=== PATIENT | male | born 1970 | race Caucasian/White ===

== ENCOUNTER 2017-05-11 18:05 | Emergency (ER) | payer BC ==
[2017-05-11] MEDS ORDERED: Ibuprofen TAB* 600 MG PO ONE (18:35)
--- NOTE | 2017-05-11 18:39 | ED ---
Skin Complaint - HPI Summary HPI Summary: 46 male presents with complaints of a bug bite that has been progressively worsening over the past week. He sustained the bite on Sunday05/05/17 and it has since became more red and hot over his left elbow. Patient is unsure what the bug was he just felt it biting him whiel moving the lawn and having his arm in a slim bravo and he swapped it off. States he saw his PCP yesterday who started him on Bactrim. He has taken a total of 3 and they marked the area of erythema. However today the erythema is still progressing and is now outside of the demarcated area. States he also has a headache and feels weak and feverish. Denies pain at bite area. Denies red streaks and drainage. Denies difficulty breathing and chest pain. No other bites or complaints at this time. Has not taken any other medication besides the first doses of bactrim. PMHx significant for HTN and palpitations. - History of Current Complaint Chief Complaint: EDGeneral Time Seen by Provider: 05/11/17 18:25 Stated Complaint: BUG BITE Hx Obtained From: Patient Onset/Duration: Started Weeks Ago - 1, Still Present, Worse Since Skin Exposure Onset/Duration: Weeks Ago - 1 Timing: Constant Onset Severity: Mild Current Severity: Mild Pain Intensity: 3 Pain Scale Used: 0-10 Numeric Skin Location: Arm - left elbow area Character: Swelling, Redness Aggravating Symptom(s): Nothing Alleviating Symptom(s): Nothing Associated Signs & Symptoms: Fever, Rash Related History: Insect Bite/Sting - unknown type - Allergy/Home Medications Allergies/Adverse Reactions: Allergies Allergy/AdvReac Type Severity Reaction Status Date / Time Aspirin Allergy Unknown Unknown Verified 03/15/15 08:20 Reaction Details Penicillins [PCN] Allergy Unknown Unknown Verified 03/15/15 08:20 Reaction Details PMH/Surg Hx/FS Hx/Imm Hx Endocrine/Hematology History: Denies: Hx Diabetes, Hx Thyroid Disease Cardiovascular History: Reports: Hx Hypercholesterolemia, Hx Hypertension, Other Cardiovascular Problems/Disorders - IRREGULAR HEART RATE SOMETIMES Denies: Hx Angina, Hx Pacemaker/ICD Respiratory History: Denies: Hx Asthma, Other Respiratory Problems/Disorders GI History: Denies: Hx Ulcer History: Denies: Hx Renal Disease Sensory History: Denies: Hx Hearing Aid Psychiatric History: Denies: Hx Panic Disorder - Surgical History Surgery Procedure, Year, and Place: Lt elbow,. Lt. fingers- TABLE SAW CUT ACROSS- REATTACHED - Immunization History Date of Tetanus Vaccine: needs one Infectious Disease History: No Infectious Disease History: Denies: Hx Clostridium Difficile, Hx Hepatitis, Hx Human Immunodeficiency Virus (HIV), Hx of Known/Suspected MRSA, Hx Shingles, Hx Tuberculosis, Hx Known/ Suspected VRE, Hx Known/Suspected VRSA, History Other Infectious Disease, Traveled Outside the [place] in Last 30 Days - Family History Known Family History: Positive: None - Social History Alcohol Use: Occasionally Alcohol Amount: 6 pack per week Substance Use Type: Reports: None Hx Tobacco Use: No Smoking Status (MU): Never Smoked Tobacco Type: Smokeless Tobacco Amount Used/How Often: 1 can every 4 days Length of Time of Smoking/Using Tobacco: since 16 years old Have You Smoked in the Last Year: No Review of Systems Positive: Fever, Chills, Fatigue Eyes: Negative Cardiovascular: Negative Respiratory: Negative Gastrointestinal: Negative Musculoskeletal: Negative Positive: Rash - insect bite All Other Systems Reviewed And Are Negative: Yes Physical Exam Triage Information Reviewed: Yes Vital Signs On Initial Exam: Initial Vitals Temp Pulse Resp BP Pulse Ox 98.2 F 85 18 135/100 100 05/11/17 18:07 05/11/17 18:07 05/11/17 18:07 05/11/17 18:07 05/11/17 18:07 Vital Signs Reviewed: Yes Appearance: Positive: Well-Appearing, No Pain Distress, Well-Nourished Skin: Positive: Warm, Skin Color Reflects Adequate Perfusion, Dry, Erythema @ - left elbow extending proximal and distal approximately 15 cm in length proximally-->distally. No abscess, sign of bite, drainage or red streaks. demarcated area line drawn however redness is outside of area. warm to touch non tender, Other - rest of skin exam normal, no rash or other bites.. Negative : Cold, Numb, Tender, Soft, Pale, Weeping Skin/Lesions Head/Face: Positive: Normal Head/Face Inspection Eyes: Positive: Normal, Conjunctiva Clear ENT: Positive: Normal ENT inspection, Hearing grossly normal Neck: Positive: Supple, Nontender, No Lymphadenopathy Respiratory/Lung Sounds: Positive: Clear to Auscultation, Breath Sounds Present. Negative: Decreased Breath Sounds, Rales, Rhonchi, Stridor, Wheezes Cardiovascular: Positive: Normal, RRR, Pulses are Symmetrical in both Upper and Lower Extremities. Negative: Murmur, Rub Bowel Sounds: Positive: Present Musculoskeletal: Positive: Normal, Strength/ROM Intact, Edema Left - very minimal over area of cellulitis (left elbow), diffuse, not significant when compared to right. Negative: Limited @, Interruption @, Pain @ Neurological: Positive: Normal, Sensory/Motor Intact - sensation intact, Alert, Oriented to Person Place, Time, CN Intact II-III, Reflexes Intact, NV Bundle Intact Distally Psychiatric: Positive: Affect/Mood Appropriate AVPU Assessment: Alert Diagnostics - Vital Signs Vital Signs Temp Pulse Resp BP Pulse Ox 05/11/17 18:26 98.2 F 85 18 135/100 100 05/11/17 18:07 98.2 F 85 18 135/100 100 - Laboratory Result Diagrams: 05/11/17 18:45 05/11/17 18:45 Lab Statement: Any lab studies that have been ordered have been reviewed, and results considered in the medical decision making process. Course/Dx - Course Course Of Treatment: given ibuprofen for headache. CBC and CMP obtained to rule out sepsis. unremarkable. due to normal lab values and clinical presentation will be sent home with additional antibiotic at this time. educated on worsening signs and symptoms to watch out for. return if does not improve. follow up with pcp. continue marking area of erythema. - Differential Diagnoses - Skin Complaint Differential Diagnoses: Cellulitis, Contact Dermatitis, Local Allergic Reaction , Tinea, Urticaria, Viral Exanthem - Diagnoses Provider Diagnoses: Cellulitis, Bug bite of face with infection Discharge - Discharge Plan Condition: Stable Disposition: HOME Patient Education Materials: Cellulitis (ED), Insect Bite or Sting (ED) Referrals: Larisa Collado [Primary Care Provider] - Additional Instructions: Continue taking Bactrim given to you by your primary care doctor. Take prescribed antibiotic given to you in ED as directed. Recommend eating yemeni yogurt or taking a probiotic pill once a day hour or two after taking antibiotic pill to replenish normal mary anne. Ibuprofen for pain and inflammation only if needed. If symptoms worsen or are still not improving within 2-3 days please seek medical attention. If you develop fever/chills, feeling ill, or red streaking return to ER immediately.
[2017-05-11 18:53] LABS: Hematocrit 37 % (42-52); Hemoglobin 12.1 g/dl (14.0-18.0); Mean Corpuscular HGB Conc 33 g/dl (31-36); Mean Corpuscular Hemoglobin 28 pg (27-31); Mean Corpuscular Volume 87 fL (80-94); Mean Platelet Volume 8 um3 (7.4-10.4); Red Blood Count 4.26 10^6/ul (4.0-5.4); Red Cell Distribution Width 13 % (10.5-15); White Blood Count 5.8 10^3/ul (3.5-10.8)
[2017-05-11 19:08] LABS: Albumin 4.2 g/dL (3.2-5.2); BUN/Creatinine Ratio 11.8 (8-20); Calcium 9.5 mg/dL (8.6-10.3); EGFR African American 84.6 (>60); EGFR Non-African American 65.8 (>60); Globulin 3.3 g/dL (2-4); Potassium 3.6 mmol/L (3.5-5.0); Total Bilirubin 0.3 mg/dL (0.2-1.0); Total Protein 7.5 g/dL (6.4-8.9)
[2017-05-11 19:39] VITALS: BP 127/88
[2017-05-11] MEDS ORDERED: Cephalexin CAP* 250 MG PO ONE (19:44)
== END 2017-05-11 19:59 | disposition home or self-care (01) ==
LOC: ED 18:05
DX: S00.86XA Insect bite (nonvenomous) of other part of head, initial encounter (principal); L03.211 Cellulitis of face; W57.XXXA Bitten or stung by nonvenomous insect and other nonvenomous arthropods, initial encounter; Y92.9 Unspecified place or not applicable; E78.00 Pure hypercholesterolemia, unspecified; I10 Essential (primary) hypertension; F17.229 Nicotine dependence, chewing tobacco, with unspecified nicotine-induced disorders
CPT/HCPCS: 36415; 80053; 83605; 85025; 99282; A9270-GY

== ENCOUNTER 2017-08-23 07:49 | Emergency (ER) | payer BC ==
[2017-08-23 09:13] LABS: Hematocrit 36 % (42-52); Hemoglobin 12.5 g/dl (14.0-18.0); Mean Corpuscular HGB Conc 34 g/dl (31-36); Mean Corpuscular Hemoglobin 30 pg (27-31); Mean Corpuscular Volume 87 fL (80-94); Mean Platelet Volume 8 um3 (7.4-10.4); Red Cell Distribution Width 14 % (10.5-15); White Blood Count 9.9 10^3/ul (3.5-10.8)
--- NOTE | 2017-08-23 09:26 | RAD ---
INDICATION: Chest pain COMPARISON: February 08, 2015 TECHNIQUE: PA and lateral dual-energy views were obtained. FINDINGS: Bones/Soft Tissues: There are no acute bony findings. Cardiomediastinal: The cardiomediastinal silhouette is normal. Lungs: There are no infiltrates. There is no pneumothorax. Pleura: There are no pleural effusions. Other: None IMPRESSION: NORMAL CHEST
[2017-08-23 09:36] LABS: Albumin 4.2 g/dL (3.2-5.2); BUN/Creatinine Ratio 14.7 (8-20); Calcium 9.2 mg/dL (8.6-10.3); EGFR African American 100.7 (>60); EGFR Non-African American 78.3 (>60); Globulin 2.8 g/dL (2-4); Total Bilirubin 0.3 mg/dL (0.2-1.0)
--- NOTE | 2017-08-23 11:06 | ED ---
Bernard Manuel Benjamin, scribed for Mike Sánchez MD on 08/23/17 at 0840 . HPI Chest Pain - HPI Summary HPI Summary: 47yo male c/o sudden onset of chest pressure yesterday night. Pt also woke up this morning around 5am with the same CP. Pt states that his CP radiates to neck and shoulder blades. Pain is worsened with deep breaths but movement does not affect his pain. Denies any swelling or pain in legs. Pt has recently finished his abx tx course for Lyme disease. Pt has hx of irregular heart beat, which pt has followed up with a cardiac work up including a stress test. No cardiac catheter was done. 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 Negative: Calf Pain/ Swelling - Allergy/Home Medications Allergies/Adverse Reactions: Allergies Allergy/AdvReac Type Severity Reaction Status Date / Time Aspirin Allergy Unknown Unknown Verified 03/15/15 08:20 Reaction Details Penicillins [PCN] Allergy Unknown Unknown Verified 03/15/15 08:20 Reaction Details PMH/Surg Hx/FS Hx/Imm Hx Endocrine/Hematology History: Denies: Hx Diabetes, Hx Thyroid Disease Cardiovascular History: Reports: Hx Hypercholesterolemia, Hx Hypertension, Other Cardiovascular Problems/Disorders - IRREGULAR HEART RATE SOMETIMES Denies: Hx Angina, Hx Pacemaker/ICD Respiratory History: Denies: Hx Asthma, Other Respiratory Problems/Disorders GI History: Denies: Hx Ulcer History: Denies: Hx Renal Disease Sensory History: Denies: Hx Hearing Aid Psychiatric History: Denies: Hx Panic Disorder - Surgical History Surgery Procedure, Year, and Place: Lt elbow,. Lt. fingers- TABLE SAW CUT ACROSS- REATTACHED - Immunization History Date of Tetanus Vaccine: needs one Infectious Disease History: No Infectious Disease History: Denies: Hx Clostridium Difficile, Hx Hepatitis, Hx Human Immunodeficiency Virus (HIV), Hx of Known/Suspected MRSA, Hx Shingles, Hx Tuberculosis, Hx Known/ Suspected VRE, Hx Known/Suspected VRSA, History Other Infectious Disease, Traveled Outside the [place] in Last 30 Days - Family History Known Family History: Positive: Hypertension Negative: Cardiac Disease, Diabetes - Social History Occupation: Employed Full-time Lives: With Family Alcohol Use: Occasionally Alcohol Amount: 6 pack per week Substance Use Type: Reports: None Hx Tobacco Use: No Smoking Status (MU): Never Smoked Tobacco Type: Smokeless Tobacco Amount Used/How Often: 1 can every 4 days Length of Time of Smoking/Using Tobacco: since 16 years old Have You Smoked in the Last Year: No Review of Systems Constitutional: Negative Eyes: Negative ENT: Negative Positive: Chest Pain Respiratory: Negative Gastrointestinal: Negative Genitourinary: Negative Musculoskeletal: Negative Skin: Negative Neurological: Negative Psychological: Normal All Other Systems Reviewed And Are Negative: Yes Physical Exam Triage Information Reviewed: Yes Vital Signs On Initial Exam: Initial Vitals Temp Pulse Resp BP Pulse Ox 97.1 F 85 20 164/100 100 08/23/17 07:53 08/23/17 07:53 08/23/17 07:53 08/23/17 07:53 08/23/17 07:53 Vital Signs Reviewed: Yes Appearance: Positive: Well-Appearing, No Pain Distress, Well-Nourished Skin: Positive: Warm, Skin Color Reflects Adequate Perfusion, Dry Head/Face: Positive: Normal Head/Face Inspection Eyes: Positive: Normal, EOMI, CALLI ENT: Positive: Normal ENT inspection, Hearing grossly normal Neck: Positive: Supple, Nontender Respiratory/Lung Sounds: Positive: Clear to Auscultation, Breath Sounds Present Cardiovascular: Positive: RRR, Pulses are Symmetrical in both Upper and Lower Extremities. Negative: Murmur Abdomen Description: Positive: Nontender, Soft Bowel Sounds: Positive: Present Musculoskeletal: Positive: Normal, Strength/ROM Intact Neurological: Positive: Sensory/Motor Intact, Alert, Oriented to Person Place, Time Psychiatric: Positive: Affect/Mood Appropriate Diagnostics - Vital Signs Vital Signs Temp Pulse Resp BP Pulse Ox 08/23/17 07:53 97.1 F 85 20 164/100 100 - Laboratory Lab Results: Lab Results 08/23/17 08/23/17 08/23/17 Range/Units 09:00 09:00 09:00 WBC 9.9 (3.5-10.8) 10^3/ul RBC 4.20 (4.0-5.4) 10^6/ul Hgb 12.5 L (14.0-18.0) g/dl Hct 36 L (42-52) % MCV 87 (80-94) fL MCH 30 (27-31) pg MCHC 34 (31-36) g/dl RDW 14 (10.5-15) % Plt Count 264 (150-450) 10^3/ul MPV 8 (7.4-10.4) um3 Neut % (Auto) 75.0 (38-83) % Lymph % (Auto) 13.7 L (25-47) % Griggs % (Auto) 8.0 (1-9) % Eos % (Auto) 2.6 (0-6) % Baso % (Auto) 0.7 (0-2) % Absolute Neuts (auto) 7.4 (1.5-7.7) 10^3/ul Absolute Lymphs (auto) 1.4 (1.0-4.8) 10^3/ul Absolute Monos (auto) 0.8 (0-0.8) 10^3/ul Absolute Eos (auto) 0.3 (0-0.6) 10^3/ul Absolute Basos (auto) 0.1 (0-0.2) 10^3/ul Absolute Nucleated RBC 0 10^3/ul Nucleated RBC % 0 D-Dimer, Quantitative < 200 (Less Than 230) ng/mL Sodium 138 (133-145) mmol/L Potassium 4.0 (3.5-5.0) mmol/L Chloride 106 (101-111) mmol/L Carbon Dioxide 25 (22-32) mmol/L Anion Gap 7 (2-11) mmol/L BUN 15 (6-24) mg/dL Creatinine 1.02 (0.67-1.17) mg/dL Est GFR ( Amer) 100.7 (>60) Est GFR (Non-Af Amer) 78.3 (>60) BUN/Creatinine Ratio 14.7 (8-20) Glucose 105 H (70-100) mg/dL Lactic Acid (0.5-2.0) mmol/L Calcium 9.2 (8.6-10.3) mg/dL Total Bilirubin 0.30 (0.2-1.0) mg/dL AST 18 (13-39) U/L ALT 21 (7-52) U/L Alkaline Phosphatase 39 (34-104) U/L Troponin I 0.00 (<0.04) ng/mL Total Protein 7.0 (6.4-8.9) g/dL Albumin 4.2 (3.2-5.2) g/dL Globulin 2.8 (2-4) g/dL Albumin/Globulin Ratio 1.5 (1-3) 08/23/17 Range/Units 09:00 WBC (3.5-10.8) 10^3/ul RBC (4.0-5.4) 10^6/ul Hgb (14.0-18.0) g/dl Hct (42-52) % MCV (80-94) fL MCH (27-31) pg MCHC (31-36) g/dl RDW (10.5-15) % Plt Count (150-450) 10^3/ul MPV (7.4-10.4) um3 Neut % (Auto) (38-83) % Lymph % (Auto) (25-47) % Griggs % (Auto) (1-9) % Eos % (Auto) (0-6) % Baso % (Auto) (0-2) % Absolute Neuts (auto) (1.5-7.7) 10^3/ul Absolute Lymphs (auto) (1.0-4.8) 10^3/ul Absolute Monos (auto) (0-0.8) 10^3/ul Absolute Eos (auto) (0-0.6) 10^3/ul Absolute Basos (auto) (0-0.2) 10^3/ul Absolute Nucleated RBC 10^3/ul Nucleated RBC % D-Dimer, Quantitative (Less Than 230) ng/mL Sodium (133-145) mmol/L Potassium (3.5-5.0) mmol/L Chloride (101-111) mmol/L Carbon Dioxide (22-32) mmol/L Anion Gap (2-11) mmol/L BUN (6-24) mg/dL Creatinine (0.67-1.17) mg/dL Est GFR ( Amer) (>60) Est GFR (Non-Af Amer) (>60) BUN/Creatinine Ratio (8-20) Glucose (70-100) mg/dL Lactic Acid 1.8 (0.5-2.0) mmol/L Calcium (8.6-10.3) mg/dL Total Bilirubin (0.2-1.0) mg/dL AST (13-39) U/L ALT (7-52) U/L Alkaline Phosphatase (34-104) U/L Troponin I (<0.04) ng/mL Total Protein (6.4-8.9) g/dL Albumin (3.2-5.2) g/dL Globulin (2-4) g/dL Albumin/Globulin Ratio (1-3) Result Diagrams: 08/23/17 09:00 08/23/17 09:00 Lab Statement: Any lab studies that have been ordered have been reviewed, and results considered in the medical decision making process. - EKG 0905. Cardiac Rate: NL - 70bpm EKG Rhythm: Sinus Rhythm EKG Interpretation: Early repolarization. Re-Evaluation - Re-Evaluation Second Eval Re-Evaluation Time: 10:26 Comment: Reviewed pts lab and imaging results with the pt. Chest Pain Course/Dx - Course Course Of Treatment: Mr. Ansari presented with an atypical CP. His EDACS score is 6 and his W/U is negative. - Diagnoses Provider Diagnoses: Chest pain Discharge - Discharge Plan Condition: Stable Disposition: HOME Patient Education Materials: Chest Pain (ED) Referrals: Larisa Collado [Primary Care Provider] - 2 Days The documentation as recorded by the Bernard hall Benjamin accurately reflects the service I personally performed and the decisions made by , Mike Sánchez MD.
[2017-08-23 11:07] VITALS: BP 116/75
== END 2017-08-23 11:13 | disposition home or self-care (01) ==
LOC: ED 07:49
DX: R07.9 Chest pain, unspecified (principal)
CPT/HCPCS: 36415; 71020; 80053; 83605; 84484; 85025; 85379; 93005; 99282

== ENCOUNTER 2017-12-18 10:45 | Emergency (ER) | payer BC ==
[2017-12-18 11:14] VITALS: BP 129/90
--- NOTE | 2017-12-18 11:51 | UC ---
Throat Pain/Nasal Luis HPI - HPI Summary HPI Summary: Patient presents with a past medical history of palpitations. He presents today with complaints of nasal discharge by day, and complete nasal plugging at night. He also complains of sore throat. He states he has been taking luzmaria selzer with no relief. He denies any chest pain, dyspnea, syncope, fever, chills , chest of abdominal pain, nausea, vomiting, or diarrhea. - History of Current Complaint Chief Complaint: UCGeneralIllness Stated Complaint: THROAT PAIN Time Seen by Provider: 12/18/17 11:34 Hx Obtained From: Patient Onset/Duration: Gradual Onset, Lasting Days Severity: Moderate Pain Intensity: 4 Cough: Nonproductive Associated Signs & Symptoms: Positive: Sinus Discomfort, Nasal Discharge - Epiglottits Risk Factors Epiglottis Risk Factors: Negative - Allergies/Home Medications Allergies/Adverse Reactions: Allergies Allergy/AdvReac Type Severity Reaction Status Date / Time MS Aspirin [Aspirin] Allergy Unknown Unknown Verified 12/18/17 11:14 Reaction Details MS Penicillins [PCN] Allergy Unknown Unknown Verified 12/18/17 11:14 Reaction Details PMH/Surg Hx/FS Hx/Imm Hx Previously Healthy: Yes - Surgical History Surgical History: Yes Surgery Procedure, Year, and Place: Lt elbow,. Lt. fingers- TABLE SAW CUT ACROSS- REATTACHED - Family History Known Family History: Positive: None, Hypertension Negative: Cardiac Disease, Diabetes - Social History Occupation: Employed Full-time Lives: Alone Alcohol Use: Weekly Alcohol Amount: 6 pack per week Substance Use Type: None Smoking Status (MU): Never Smoked Tobacco Type: Smokeless Tobacco Amount Used/How Often: 1 can every 4 days Length of Time of Smoking/Using Tobacco: since 16 years old Have You Smoked in the Last Year: No Review of Systems Constitutional: Fatigue Skin: Negative Eyes: Negative ENT: Sore Throat, Nasal Discharge, Sinus Congestion, Sinus Pain/Tenderness Respiratory: Negative Cardiovascular: Negative Gastrointestinal: Negative Genitourinary: Negative Motor: Negative Neurovascular: Negative Musculoskeletal: Negative Neurological: Negative Psychological: Negative Is Patient Immunocompromised?: No All Other Systems Reviewed And Are Negative: Yes Physical Exam Triage Information Reviewed: Yes Appearance: Well-Appearing Vital Signs: Initial Vital Signs Temp 98.6 F 12/18/17 11:10 Pulse 84 12/18/17 11:10 Resp 18 12/18/17 11:10 BP 129/90 12/18/17 11:10 Pulse Ox 100 12/18/17 11:10 Vital Signs Reviewed: Yes Eye Exam: Normal ENT: Positive: Pharyngeal erythema, Nasal congestion, Nasal drainage, Sinus tenderness Neck exam: Normal Neck: Positive: 1 Respiratory Exam: Normal Cardiovascular Exam: Normal Abdominal Exam: Normal Musculoskeletal Exam: Normal Neurological Exam: Normal Psychological Exam: Normal Skin Exam: Normal Throat Pain/Nasal Course/Dx - Course Course Of Treatment: Patient presents with a past medical history of palpitations. He presents today with complaints of sinus discharge, and nasal plugging, with normal vital signs and a non-toxic appearance. He is exposed to sheet rock dust at work and this has aggrevated his sinuses. He presents clincially with sinusiits and he has tried OTC cough and cold remedies. Therefore he was prescribed zpk, prednisone, and told to stay home from work today. He did verbalize understanding of and in agreement with the discharge plan. - Differential Dx/Diagnosis Differential Diagnosis/HQI/PQRI: Sinusitis Provider Diagnoses: sinusitis Discharge - Discharge Plan Condition: Stable Disposition: HOME Prescriptions: Azithromycin TAB* [Zithromax TAB (Z-CRISTELA) 250 mg #6 tabs] 2 tab PO .TODAY, THEN 1 DAILY #1 cristela predniSONE TAB* [Deltasone TAB*] 20 mg PO BID #10 tab Patient Education Materials: Sinusitis (ED) Referrals: Larisa Collado [Primary Care Provider] - Additional Instructions: If your symptoms do not improve follow up with your PCP within 48 hours.
== END 2017-12-18 11:50 | disposition home or self-care (01) ==
LOC: UCEAST 10:45
DX: J32.9 Chronic sinusitis, unspecified (principal); Z88.6 Allergy status to analgesic agent; Z88.0 Allergy status to penicillin; F17.220 Nicotine dependence, chewing tobacco, uncomplicated
CPT/HCPCS: 99212; G0463

== ENCOUNTER 2018-10-07 13:03 | Emergency (ER) | payer BC ==
[2018-10-07 13:11] VITALS: BP 140/90
--- NOTE | 2018-10-07 13:30 | UC ---
UC General HPI - HPI Summary HPI Summary: Here with - Concern for watery diarrhea that began 10/03 - nonbloody. Stools darker since pept Watery diarrhea has improved is just loose. Also c/o subjective fever off and on as well. Now c/o chest tightness, lightheadedness and feeling off. Currently feels off right now. +Nausea. No vomiting. No diaphoresis. +Sore throat, +congestion. No SOB. +H/A. No recent Abx use. Started with sharp abdominal pain today. Last stress test was a few years ago. Concerned because on 10/02 - he was exposed to a significant amount of mice infestation. He was wearing a mask, but was concerned about exposure. No sick contacts. Denies any urinary symptoms. PMHx: HTN, HLD FMHx: No early CAD - History of Current Complaint Chief Complaint: UCGeneralIllness Stated Complaint: WEAKNESS, DIZZINESS Time Seen by Provider: 10/07/18 13:17 Pain Intensity: 6 - Allergy/Home Medications Allergies/Adverse Reactions: Allergies Allergy/AdvReac Type Severity Reaction Status Date / Time aspirin Allergy Intermediate Unknown Verified 10/07/18 13:12 Reaction Details Penicillins Allergy Intermediate Unknown Verified 10/07/18 13:12 Reaction Details Home Medications: Home Medications Pravastatin (NF) [Pravachol (NF)] 20 mg PO 1700 10/07/18 [History Confirmed ] PMH/Surg Hx/FS Hx/Imm Hx Previously Healthy: No Endocrine History: Dyslipidemia Cardiovascular History: Hypertension - Surgical History Surgical History: Yes Surgery Procedure, Year, and Place: Lt elbow,. Lt. fingers- TABLE SAW CUT ACROSS- REATTACHED - Family History Known Family History: Positive: None, Hypertension Negative: Cardiac Disease, Diabetes - Social History Alcohol Use: Weekly Alcohol Amount: 6 pack per week Substance Use Type: None Smoking Status (MU): Never Smoked Tobacco Type: Smokeless Tobacco Amount Used/How Often: 1 can every 4 days Length of Time of Smoking/Using Tobacco: since 16 years old Have You Smoked in the Last Year: No Review of Systems All Other Systems Reviewed And Are Negative: Yes Is Patient Immunocompromised?: No - Comments Additional Review of Systems Comments: As mentioned in HPI Physical Exam Triage Information Reviewed: Yes Completion Of Physical Exam Limited Due To: Other - Pale Appearance: Well-Appearing Vital Signs: Initial Vital Signs Temp 98.6 F 10/07/18 13:07 Pulse 79 10/07/18 13:07 Resp 18 10/07/18 13:07 BP 140/90 10/07/18 13:07 Pulse Ox 100 10/07/18 13:07 Eyes: Positive: Conjunctiva Clear ENT: Positive: Tonsillar swelling Dental Exam: Normal Neck: Positive: Supple, Nontender Respiratory: Positive: Chest non-tender, Lungs clear, Normal breath sounds Cardiovascular: Positive: RRR, Other: - soft systolic murmur Abdomen Description: Positive: Nontender, No Organomegaly, Soft Skin Exam: Normal Diagnostics - EKG Cardiac Rate: NL EKG Comparison: No Significant Change Course/Dx - Course Course Of Treatment: This is a 48 yr old with diarrhea and feeling unwell for the past week. Orthostatics unremarkable. Ddx: Gastroenteritis with mild dehydration. Viral illness. Electrolyte imbalance. Plan. Discussed that he should go directly to the ER for further work up including labs and possible IVFs. SPoke with Dr. Keane - Differential Dx - Multi-Symptom Provider Diagnoses: Diarrhea Discharge - Sign-Out/Discharge Documenting (check all that apply): Patient Departure All imaging exams completed and their final reports reviewed: No Studies - Discharge Plan Condition: Stable Disposition: HOME-RECOMMEND TO ED Referrals: Larisa Collado [Primary Care Provider] - Additional Instructions: REcommend going directly to the ER for further evaluation - Billing Disposition and Condition Condition: STABLE Disposition: Home-Recommend to ED
== END 2018-10-07 13:45 | disposition home health service (06) ==
LOC: UCEAST 13:03
DX: R19.7 Diarrhea, unspecified (principal); Z88.0 Allergy status to penicillin; Z88.6 Allergy status to analgesic agent; I10 Essential (primary) hypertension; E78.5 Hyperlipidemia, unspecified
CPT/HCPCS: 81003; 93005; 99212; G0463

== ENCOUNTER 2018-10-07 14:05 | Emergency (ER) | payer BC ==
[2018-10-07] MEDS ORDERED: NS 0.9% 1000 ML* 1,000 ML IV ONE (15:10)
--- NOTE | 2018-10-07 15:27 | ED ---
Influenza-Like Illness - HPI Summary HPI Summary: Patient is an otherwise healthy 48-year-old male presenting to the ED with a 6 day history of flulike symptoms. Endorses intermittent fevers, chills, intermittent sweats, nausea and weakness. Denies influenza immunization this year. Endorses one episode of diarrhea, however this has improved. He denies any known sick contacts. Denies history of same symptoms. He continues to eat and drink well. Denies any nausea currently but states this has been intermittent over the past week. He has not taken his temperature home, however has felt diaphoretic. Nothing makes the symptoms better or worse. He has been taking Tylenol at home without relief. He has not taken any other medications. He denies any allergies or significant PMH. - History of Current Complaint Chief Complaint: EDWeakness Time Seen by Provider: 10/07/18 14:36 Hx Obtained From: Patient, Family/[employer]ud [employer] Onset/Duration: Gradual Onset Severity: Moderate Associated Signs & Symptoms: Fever, F/C, Sore Throat, Nasal Congestion - Risk Factors Influenza Risk Factors: Negative - Allergy/Home Medications Allergies/Adverse Reactions: Allergies Allergy/AdvReac Type Severity Reaction Status Date / Time aspirin Allergy Intermediate Unknown Verified 10/07/18 14:13 Reaction Details Penicillins Allergy Intermediate Unknown Verified 10/07/18 14:13 Reaction Details PMH/Surg Hx/FS Hx/Imm Hx Previously Healthy: Yes Endocrine/Hematology History: Denies: Hx Diabetes, Hx Thyroid Disease Cardiovascular History: Reports: Hx Hypercholesterolemia, Hx Hypertension, Other Cardiovascular Problems/Disorders - IRREGULAR HEART RATE SOMETIMES Denies: Hx Angina, Hx Pacemaker/ICD Respiratory History: Denies: Hx Asthma, Other Respiratory Problems/Disorders GI History: Denies: Hx Ulcer History: Denies: Hx Renal Disease Sensory History: Denies: Hx Hearing Aid Psychiatric History: Denies: Hx Panic Disorder - Surgical History Surgery Procedure, Year, and Place: Lt elbow,. Lt. fingers- TABLE SAW CUT ACROSS- REATTACHED - Immunization History Date of Tetanus Vaccine: needs one Infectious Disease History: No Infectious Disease History: Denies: Hx Clostridium Difficile, Hx Hepatitis, Hx Human Immunodeficiency Virus (HIV), Hx of Known/Suspected MRSA, Hx Shingles, Hx Tuberculosis, Hx Known/ Suspected VRE, Hx Known/Suspected VRSA, History Other Infectious Disease, Traveled Outside the [place] in Last 30 Days - Family History Known Family History: Positive: None, Hypertension Negative: Cardiac Disease, Diabetes - Social History Occupation: Employed Full-time Lives: With Family Alcohol Use: Weekly Alcohol Amount: 6 pack per week Hx Substance Use: No Substance Use Type: Reports: Marijuana Substance Use Comment - Amount & Last Used: smoked marijuana 2 days ago. Hx Tobacco Use: No Smoking Status (MU): Never Smoked Tobacco Type: Smokeless Tobacco Amount Used/How Often: 1 can every 4 days Length of Time of Smoking/Using Tobacco: since 16 years old Have You Smoked in the Last Year: No Review of Systems Positive: Fever, Chills, Fatigue, Skin Diaphoresis Negative: Photophobia, Blurred Vision, Diplopia Negative: Sore Throat, Ear Ache, Nasal Discharge Negative: Palpitations, Chest Pain Negative: Shortness Of Breath, Cough Positive: Diarrhea, Nausea Genitourinary: Negative Positive: no symptoms reported, see HPI Negative: Arthralgia, Myalgia Skin: Negative Positive: Weakness All Other Systems Reviewed And Are Negative: Yes Physical Exam Triage Information Reviewed: Yes Vital Signs On Initial Exam: Initial Vitals Temp Pulse Resp BP Pulse Ox 98.2 F 74 16 155/93 100 10/07/18 14:08 10/07/18 14:08 10/07/18 14:08 10/07/18 14:08 10/07/18 14:08 Vital Signs Reviewed: Yes Appearance: Positive: Well-Appearing, Well-Nourished Skin: Positive: Skin Color Reflects Adequate Perfusion Head/Face: Positive: Normal Head/Face Inspection Eyes: Positive: EOMI, CALLI, Conjunctiva Clear Neck: Positive: Supple, No Lymphadenopathy Respiratory/Lung Sounds: Positive: Breath Sounds Present Cardiovascular: Positive: RRR Musculoskeletal: Positive: Strength/ROM Intact Neurological: Positive: Speech Normal Psychiatric: Positive: Affect/Mood Appropriate AVPU Assessment: Alert Diagnostics - Vital Signs Vital Signs Temp Pulse Resp BP Pulse Ox 10/07/18 15:00 70 11 98 10/07/18 14:57 74 11 138/96 98 10/07/18 14:37 76 96 10/07/18 14:08 98.2 F 74 16 155/93 100 - Laboratory Result Diagrams: 10/07/18 15:30 10/07/18 15:30 Lab Statement: Any lab studies that have been ordered have been reviewed, and results considered in the medical decision making process. Flu Symptom Course/Dx - Course Course Of Treatment: During the course of treatment, labs obtained to evaluate this patient's flulike symptoms. Influenza negative. Chest x-ray negative. UA negative. Patient appears well, however somewhat fatigued. On physical examination, mucous membranes moist, lungs CTA, RRR, abdomen nontender. Patient is encouraged plenty of fluids and rest over the next few days. - Diagnoses Differential Diagnosis/HQI/PQRI: Positive: Influenza, Pneumonia, Upper Respiratory Infection Provider Diagnoses: Viral syndrome Discharge - Sign-Out/Discharge Documenting (check all that apply): Patient Departure - Discharge Plan Condition: Stable Disposition: HOME Referrals: Larisa Collado [Primary Care Provider] - Additional Instructions: Drink plenty of fluids - Billing Disposition and Condition Condition: STABLE Disposition: Home
[2018-10-07 15:39] LABS: ABS Basophils 0.1 10^3/ul (0-0.2); ABS Eosinophils 0.2 10^3/ul (0-0.6); ABS Lymphocytes 1.8 10^3/ul (1.0-4.8); ABS Monocytes 0.5 10^3/ul (0-0.8); ABS Neutrophils 4.1 10^3/ul (1.5-7.7); ABS Nucleated RBC 0 10^3/ul; Eosinophil % 2.7 % (0-6); Hematocrit 36 % (42-52); Hemoglobin 12.3 g/dl (14.0-18.0); Mean Corpuscular HGB Conc 34 g/dl (31-36); Mean Corpuscular Hemoglobin 30 pg (27-31); Mean Corpuscular Volume 87 fL (80-94); Mean Platelet Volume 8.1 fL (7.4-10.4); Nucleated Red Blood Cells % 0; Platelet Count 257 10^3/ul (150-450); Red Blood Count 4.15 10^6/ul (4.00-5.40); Red Cell Distribution Width 13 % (10.5-15); White Blood Count 6.6 10^3/ul (3.5-10.8)
[2018-10-07 15:53] LABS: Urine Appearance Clear; Urine Blood Negative (Negative); Urine Color Yellow; Urine Ketones Negative (Negative); Urine Protein Negative (Negative); Urine Specific Gravity 1.015 (1.010-1.030); Urine Urobilinogen Negative (Negative)
[2018-10-07 15:56] LABS: EGFR Non-African American 81.6 (>60)
[2018-10-07 17:26] VITALS: BP 129/85
== END 2018-10-07 17:25 | disposition home or self-care (01) ==
LOC: ED 14:05
DX: B34.9 Viral infection, unspecified (principal); Z88.0 Allergy status to penicillin
CPT/HCPCS: 36415; 71046; 80053; 81003; 83605; 85025; 86140; 96360; 96361; 99283

== ENCOUNTER 2018-12-10 12:32 | Emergency (ER) | payer BC ==
[2018-12-10 12:40] VITALS: BP 153/97
--- NOTE | 2018-12-10 13:00 | UC ---
Throat Pain/Nasal Luis HPI - HPI Summary HPI Summary: Pt Presents to with sinus pressure x 12 days. Pt states his ears intermittently pop + PND. Pt reports PND. Pt has been using nasonex twice daily. States helps but now wakes with thick green dry secretions and blood. No fever, chills. No cough. + facial pressure. Pt has intermittently taken Zyrtec with mild improvement. Shower steam helps. Pt works construction, extensive saw dust Pt's medications reviewed this visit No tobacco use - History of Current Complaint Chief Complaint: UCRespiratory Stated Complaint: SINUS ISSUE Time Seen by Provider: 12/10/18 12:36 Hx Obtained From: Patient Severity: Moderate Pain Intensity: 5 Pain Scale Used: 0-10 Numeric - Allergies/Home Medications Allergies/Adverse Reactions: Allergies Allergy/AdvReac Type Severity Reaction Status Date / Time aspirin Allergy Intermediate Unknown Verified 12/10/18 12:41 Reaction Details Penicillins Allergy Intermediate Unknown Verified 12/10/18 12:41 Reaction Details Home Medications: Home Medications Metoprolol Tartrate TAB* [Lopressor TAB*] 25 mg PO DAILY 12/10/18 [History Confirmed 12/10/18] PMH/Surg Hx/FS Hx/Imm Hx Previously Healthy: Yes - Surgical History Surgical History: Yes Surgery Procedure, Year, and Place: Lt elbow,. Lt. fingers- TABLE SAW CUT ACROSS- REATTACHED - Family History Known Family History: Positive: None, Hypertension, Non-Contributory Negative: Cardiac Disease, Diabetes - Social History Alcohol Use: Weekly Alcohol Amount: 6 pack per week Substance Use Type: None Substance Use Comment - Amount & Last Used: smoked marijuana 2 days ago. Smoking Status (MU): Never Smoked Tobacco Type: Smokeless Tobacco Amount Used/How Often: 1 can every 4 days Length of Time of Smoking/Using Tobacco: since 16 years old Have You Smoked in the Last Year: No Review of Systems All Other Systems Reviewed And Are Negative: Yes ENT: Positive: Nasal Discharge, Sinus Congestion, Sinus Pain/Tenderness Respiratory: Positive: Cough Physical Exam - Summary Physical Exam Summary: Vital Signs Reviewed: Yes A+Ox3, no distress Eyes: Conjunctiva Clear, CALLI. EOM intact and full ENT: Hearing grossly normal, mild fluid b/l TM L>R, no erythema, no retraction, turbinates inflammed and boggy, +pnd, mmoist, uvula midline, no exudate, no erythema Neck: Positive: Supple Respiratory: Positive: No respiratory distress, No accessory muscle use + CTA throughout no w/r Cardiovascular: RRR nl s1, s2 no m/r CBT <2 sec abd soft + BS nt/nd no guarding, no distension Musculoskeletal Exam: PLATT x 4 without difficulty Strength Intact, ROM Intact Neurological: Positive: Alert, + sensation throughout Psychological: Positive: Normal Response To Family Skin: Positive: no rash, no ecchymosis Triage Information Reviewed: Yes Vital Signs: Initial Vital Signs Temp 99.0 F 12/10/18 12:36 Pulse 81 12/10/18 12:36 Resp 16 12/10/18 12:36 BP 153/97 12/10/18 12:36 Pulse Ox 100 12/10/18 12:36 Throat Pain/Nasal Course/Dx - Course Course Of Treatment: Pt presents with progressive nasal congestion, turbinates inflammed and boggy x 12 days. Pt has been using nasonex BID - not wakes with blood in nose. No fevers, chills. mild cough. VSS. Pt exam c/w rhinosinusitis. Will Rx abx, flonase daily. humidify air. secretion precautioin. hydrate. BP increased - recommend PCP f/u - Differential Dx/Diagnosis Provider Diagnosis: Rhinosinusitis Discharge - Sign-Out/Discharge Documenting (check all that apply): Patient Departure All imaging exams completed and their final reports reviewed: No Studies - Discharge Plan Condition: Stable Disposition: HOME Prescriptions: DOXYcycline CAP(*) [DOXYcycline 100MG CAP(*)] 100 mg PO BID #20 cap Patient Education Materials: Rhinosinusitis (ED) Referrals: Larisa Collado [Primary Care Provider] - Additional Instructions: - Stay well hydrated. Drink plenty of non-alcoholic, non-caffinated beverages. - Alternate ibuprofen (Advil, Motrin) 600mg and Tylenol every 3 hours for pain or fever. Take with food. Do NOT take for more than 4-5 days. - Take antibiotics as prescribed until gone - These infections are spread by secretions - do NOT share eating or drinking utensils - clean items you share with other people such as cell phones, computer mouse, TV remote, computer tablets,etc. Once you have been antibiotics for 2 days, change your toothbrush and your pillowcase. - Use your flonase once daily only. - get plenty of restful sleep - humidify the air in the room where you sleep - boil water, run a hot steam shower, vaporizer, cups of water by heat register - okay to take over the counter decongestant and cough medication - contact your doctor or return with questions or concerns - Billing Disposition and Condition Condition: STABLE Disposition: Home
== END 2018-12-10 13:19 | disposition home or self-care (01) ==
LOC: UCEAST 12:32
DX: J32.9 Chronic sinusitis, unspecified (principal); Z88.6 Allergy status to analgesic agent; Z88.0 Allergy status to penicillin; F17.220 Nicotine dependence, chewing tobacco, uncomplicated
CPT/HCPCS: 99212; G0463